=== PATIENT | female | born 1980 ===

== ENCOUNTER → 2021-08-05 | Outpatient (CLI) | payer OTHER | END | disposition home or self-care (01) | LOC: PRENATAL 10:21 | PROVIDERS: ATTEND Obstetrics & Gynecology Maternal & Fetal Medicine | DX: O26.21 Pregnancy care for patient with recurrent pregnancy loss, first trimester (principal); O36.80X1 Pregnancy with inconclusive fetal viability, fetus 1; O09.521 Supervision of elderly multigravida, first trimester; Z36.89 Encounter for other specified antenatal screening; Z3A.08 8 weeks gestation of pregnancy ==

== ENCOUNTER 2022-03-11 16:05 | Outpatient (CLI) | payer OTHER | END 2022-03-11 16:36 | disposition home or self-care (01) | LOC: NST 16:05 | PROVIDERS: ATTEND Obstetrics & Gynecology | DX: Z34.83 Encounter for supervision of other normal pregnancy, third trimester (principal) ==

== ENCOUNTER 2022-03-14 15:22 | Outpatient (CLI) | payer OTHER | END 2022-03-14 16:09 | disposition home or self-care (01) | LOC: NST 15:22 | PROVIDERS: ATTEND Obstetrics & Gynecology | DX: Z34.83 Encounter for supervision of other normal pregnancy, third trimester (principal) ==

== ENCOUNTER 2022-03-17 15:10 | Outpatient (CLI) | payer OTHER | END 2022-03-17 17:05 | disposition home or self-care (01) | LOC: NST 15:10 | PROVIDERS: ATTEND Obstetrics & Gynecology | DX: Z34.83 Encounter for supervision of other normal pregnancy, third trimester (principal) ==

== ENCOUNTER 2022-03-21 12:39 | Outpatient (CLI) | payer OTHER ==
[2022-03-22] MEDS ORDERED: TUMS200 MG (15:11)
[2022-03-22] MEDS ORDERED: PRENATAL TABLE1 EAC3 (15:11)
[2022-03-22] MEDS ORDERED: PEPCID AC20 MG (15:11)
== END 2022-03-21 13:23 | disposition home or self-care (01) ==
LOC: NST 12:39
PROVIDERS: ATTEND Obstetrics & Gynecology
DX: Z34.83 Encounter for supervision of other normal pregnancy, third trimester (principal)